=== PATIENT | male | born 1965 | race Caucasian/White ===

== ENCOUNTER 2016-11-25 18:40 | Emergency (ER) | payer SELFPAY ==
[~2016-11-25] VITALS: Ht 193 cm; Wt 70.5 kg
[~2016-11-25 18:40] MED LIST: IBUP400T20 PO; INHALER; LORT5TAB PO
[2016-11-25] MEDS ORDERED: ALBUAER3 INH (20:24)
[2016-11-25 20:27] VITALS: BP 141/85; PULSE 70; RESP 18; TEMP 98.1; O2SAT 99
[2016-11-25 20:30] VITALS: BP 141/85; PULSE 70; RESP 18; TEMP 98.1; O2SAT 99
[2016-11-25] MEDS ORDERED: TETANUS/DIPHTHERIA TOXOID ADULT 0.5 ML VIAL IM ONE (20:30)
[2016-11-25] MEDS ORDERED: RABIES VACCINE CHICK EMB INJ 2.5 UNITS/ML SYR IM ONE (20:30)
[2016-11-25] MEDS ORDERED: AMOXICILLIN/CLAVULANATE K 875 MG TAB PO ONE (20:30)
[2016-11-25] MEDS ORDERED: RABIES IMMUNE GLOBULIN INJ 1,500 UNITS/10 ML VIAL IM ONE (20:30)
[2016-11-25] MEDS ORDERED: IBUP-232 PO (20:41)
[2016-11-25] MEDS ORDERED: AUGM875T3 PO (20:41)
--- NOTE | 2016-11-25 20:45 | PD ---
HPI Chief Complaint: Bite or Sting Time Seen by Provider: 20:19 Travel History International Travel<30 days: No Contact w/Intl Traveler<30days: No Traveled to known affect area: No History of Present Illness HPI Patient is a 61-year-old male who presents to emergency room for evaluation of cat bite. Patient reports that he was breaking up a fight with his dog and a stray cat this morning at 6 AM. Patient was bit in the left arm multiple times by this stray cat. Patient reports that his tetanus is not up-to-date. Patient has not received the rabies vaccine, unsure if this cat is a rabid cat. Patient with no fevers or chills, no other complaints. PFSH Past Medical History COPD: Yes Diminished Hearing: No Musculoskeletal: Yes (CHRONIC LOW BACK PAIN) Past Surgical History Tonsillectomy: Yes Other Surgery: Yes (RIGHT SMALL LOBECTOMY 10/18/09.) Social History Alcohol Use: Yes (3/DAY) Tobacco Use: No (QUIT 11/24. WAS A 1/2 PPD X30 YEARS.) Substance Use: No Allergies-Medications (Allergen,Severity, Reaction): Coded Allergies: No Known Allergies (Verified , 02/24/10) Reported Meds & Prescriptions Reported Meds & Active Scripts Active Ibuprofen 600 Mg Tab 600 Mg PO Q6H PRN Augmentin (Amoxicillin-Clavulanate) 875-125 Mg Tab 1 Tab PO BID 10 Days Reported Proair Hfa 8.5 GM Inh (Albuterol Sulfate) 90 Mcg/Act Aer 2 Puff INH Q4-6H PRN 108 mcg/actuation Review of Systems General / Constitutional: No: Fever Eyes: No: Visual changes HENT: No: Headaches Cardiovascular: No: Chest Pain or Discomfort Respiratory: No: Shortness of Breath Gastrointestinal: No: Abdominal Pain Genitourinary: No: Dysuria Musculoskeletal: No: Pain Skin: No Rash Neurologic: No: Weakness Psychiatric: No: Depression Endocrine: No: Polydipsia Hematologic/Lymphatic: No: Easy Bruising Physical Exam Narrative GENERAL: NAD SKIN: Focused skin assessment warm/dry. HEAD: Atraumatic. Normocephalic. EYES: Pupils equal and round. No scleral icterus. No injection or drainage. ENT: No nasal bleeding or discharge. Mucous membranes pink and moist. NECK: Trachea midline. No JVD. CARDIOVASCULAR: Regular rate and rhythm. No murmur appreciated. RESPIRATORY: No accessory muscle use. Clear to auscultation. Breath sounds equal bilaterally. GASTROINTESTINAL: Abdomen soft, non-tender, nondistended. Hepatic and splenic margins not palpable. MUSCULOSKELETAL: No obvious deformities. No clubbing. No cyanosis. Left forearm with 4 bite rey - there is no signs of FB with in these areas of bite rey, no signs of drainage or cellulitis, pulses intact, neurovascularly intact , there is 1 bite to his left upper arm - again no signs of FB or cellulitis or drainage NEUROLOGICAL: Awake and alert. No obvious cranial nerve deficits. Motor grossly within normal limits. Normal speech. PSYCHIATRIC: Appropriate mood and affect; insight and judgment normal. Data Data Last Documented VS Vital Signs Date Time Temp Pulse Resp B/P Pulse Ox O2 Delivery O2 Flow Rate FiO2 11/25/16 20:30 98.1 70 18 141/85 99 Room Air Orders Amoxicil-Clavulanate (Augmentin) (11/25/16 20:30) Tetanus/Diphtheria Tox Adult (Tetanus/Di (11/25/16 20:30) Rabies Vaccine Chick Emb Inj (Rabavert I (11/25/16 20:30) Rabies Immune Globulin Inj (Hyperrab S/D (11/25/16 20:30) MDM Medical Decision Making Medical Screen Exam Complete: Yes Emergency Medical Condition: Yes Interpretation(s) Vital Signs Date Time Temp Pulse Resp B/P Pulse Ox O2 Delivery O2 Flow Rate FiO2 11/25/16 20:30 98.1 70 18 141/85 99 Room Air 11/25/16 20:30 70 18 11/25/16 20:27 98.1 70 18 141/85 99 Differential Diagnosis Differential includes cat bite Narrative Course Patient is a 61-year-old male who presents to emergency room for evaluation of cat bite. Patient reports that he was breaking up a fight with his dog and a stray cat this morning at 6 AM. Patient was bit in the left arm multiple times by this stray cat. Patient reports that his tetanus is not up-to-date. Patient has not received the rabies vaccine, unsure if this cat is a rabid cat. Discussed need for tetanus, Augmentin as well as rabies vaccine series. Patient will return to the emergency room on November 28, , for his rabies vaccination series Signs and symptoms of when to return to the ER was reviewed with patient in detail . Diagnosis Primary Impression: Cat bite of forearm Qualified Code: S51.852A - Cat bite of left forearm, initial encounter Patient Instructions: General Instructions Additional Instructions: You have received your tetanus vaccine today. Please take all your antibiotics as prescribed You'll need to return to the emergency room for your rabies vaccine series on: Day 0: Today (you have received this dose while in the ER) Day 3: November 28, 2016 Day 7: December 02, 2016 Day 14: December 09, 2016 Return to ER if symptoms worsen Please follow up with your primary care doctor Med/Other Pt SpecificInfo: Prescription(s) given Scripts Ibuprofen 600 Mg Atu672 Mg PO Q6H PRN (Pain/Inflammation) #40 TAB Ref 0 Prov:Estela Rutherford DO 11/25/16 Amoxicillin-Clavulanate (Augmentin)875-125 Mg Tab1 Tab PO BID 10 Days Ref 0 Prov:Estela Rutherford DO 11/25/16 Disposition: 01 DISCHARGE HOME Condition: Stable Estela Rutherford DO Nov 25, 2016 20:45
[2016-11-25 22:00] VITALS: BP 125/85
== END 2016-11-25 22:01 | disposition home or self-care (01) ==
LOC: PHED 18:40
DX: S51.852A Open bite of left forearm, initial encounter (principal); W55.01XA Bitten by cat, initial encounter; Z23 Encounter for immunization
CPT/HCPCS: 90375; 90471; 90472; 90675; 90714; 96372

== ENCOUNTER 2016-11-28 17:04 | Emergency (ER) | payer SELFPAY ==
[~2016-11-28 17:04] MED LIST changes: +ALBUAER3 INH; +AUGM875T3 PO; +IBUP-232 PO; -IBUP400T20 PO; -INHALER; -LORT5TAB PO
--- NOTE | 2016-11-28 17:58 | PD ---
HPI Chief Complaint: Bite or Sting Time Seen by Provider: 17:54 Travel History International Travel<30 days: No Contact w/Intl Traveler<30days: No Traveled to known affect area: No History of Present Illness HPI 51-year-old male presents emergency department for his second rabies by scene. He was bitten by a stray cat and treated in the emergency department on . He was instructed to return for his second rabies vaccine today. Patient was put on antibiotics at the time reports that pain and swelling has decreased at the site of the bite. He has no medical complaint. [facility] Past Medical History COPD: Yes Diminished Hearing: No Musculoskeletal: Yes (CHRONIC LOW BACK PAIN) Past Surgical History Tonsillectomy: Yes Other Surgery: Yes (RIGHT SMALL LOBECTOMY 10/18/09.) Social History Alcohol Use: Yes (3/DAY) Tobacco Use: No Substance Use: No Allergies-Medications (Allergen,Severity, Reaction): Coded Allergies: No Known Allergies (Verified , 11/28/16) Reported Meds & Prescriptions Reported Meds & Active Scripts Active Reported Proair Hfa 8.5 GM Inh (Albuterol Sulfate) 90 Mcg/Act Aer 2 Puff INH Q4-6H PRN 108 mcg/actuation Review of Systems Except as stated in HPI: all other systems reviewed are Neg Physical Exam Narrative GENERAL: Well-nourished, well-developed patient. SKIN: Focused skin assessment warm/dry. 4 wounds to the left forearm all well healing without evidence of infection. HEAD: Normocephalic. EYES: No scleral icterus. No injection or drainage. NECK: Supple, trachea midline. No JVD or lymphadenopathy. CARDIOVASCULAR: Regular rate and rhythm without murmurs, gallops, or rubs. RESPIRATORY: Breath sounds equal bilaterally. No accessory muscle use. Data Data Orders Rabies Vaccine Chick Emb Inj (Rabavert I (11/28/16 18:00) MDM Medical Decision Making Medical Screen Exam Complete: Yes Emergency Medical Condition: Yes Differential Diagnosis Visit for Rabies vaccine, wound recheck, animal bite Narrative Course 51-year-old male here for his second rabies vaccine. Patient was bitten and scratched by a stray cat on 11/25. He has no medical complaint. He reports that the areas of the bite are less painful and swollen than they were previous the. Diagnosis Primary Impression: Cat bite of forearm Qualified Code: S51.852D - Cat bite of left forearm, subsequent encounter Referrals: Primary Care Physician Additional Instructions: Continue the antibiotics as prescribed. Return for your third rabies vaccine in 5 days. Disposition: 01 DISCHARGE HOME Condition: Stable Monae Shukla Nov 28, 2016 17:58
[2016-11-28] MEDS ORDERED: RABIES VACCINE CHICK EMB INJ 2.5 UNITS/ML SYR IM ONE (18:00)
== END 2016-11-28 18:24 | disposition home or self-care (01) ==
LOC: PHEFT 17:04
DX: S51.852D Open bite of left forearm, subsequent encounter (principal); W55.01XD Bitten by cat, subsequent encounter; Z23 Encounter for immunization
CPT/HCPCS: 90471; 90675; G0010

== ENCOUNTER 2016-12-03 05:47 | Emergency (ER) | payer SELFPAY ==
[~2016-12-03] VITALS: Ht 193 cm; Wt 69.8 kg
[~2016-12-03 05:47] MED LIST changes: -AUGM875T3 PO; -IBUP-232 PO
[2016-12-03 05:53] VITALS: BP 144/90; PULSE 55; RESP 16; TEMP 98.3; O2SAT 100
[2016-12-03] MEDS ORDERED: IBUP800T23 PO (06:39)
--- NOTE | 2016-12-03 07:11 | PD ---
HPI Chief Complaint: Abnormal Results Time Seen by Provider: 07:04 Travel History International Travel<30 days: No Contact w/Intl Traveler<30days: No Traveled to known affect area: No History of Present Illness HPI Patient is a 51-year-old male presents emergency department for 14 day postexposure rabies vaccination. Patient has no complaints time. States he was bitten left upper extremities feeling well and has had no rash. No fevers. No neurologic symptoms. was bit by a stray cat Is unavailable for testing. PFSH Past Medical History COPD: Yes Diminished Hearing: No Musculoskeletal: Yes (CHRONIC LOW BACK PAIN) Tetanus Vaccination: < 5 Years Influenza Vaccination: No Past Surgical History Oral Surgery: Yes (wisdom teeth) Tonsillectomy: Yes Other Surgery: Yes (RIGHT SMALL LOBECTOMY 10/18/09.) Social History Alcohol Use: Yes (occassional) Tobacco Use: Yes (1/2 ppd) Substance Use: No Allergies-Medications (Allergen,Severity, Reaction): Coded Allergies: No Known Allergies (Verified , 12/03/16) Reported Meds & Prescriptions Reported Meds & Active Scripts Active Reported Ibuprofen 800 Mg Tab 800 Mg PO Q6HR PRN Review of Systems Except as stated in HPI: all other systems reviewed are Neg Physical Exam Narrative GENERAL: Well-nourished, well-developed patient. In no acute distress SKIN: Focused skin assessment warm/dry. Well-healing puncture wounds to left forearm. HEAD: Normocephalic. EYES: No scleral icterus. No injection or drainage. NECK: Supple, trachea midline. No JVD or lymphadenopathy. CARDIOVASCULAR: Regular rate and rhythm without murmurs, gallops, or rubs. RESPIRATORY: Breath sounds equal bilaterally. No accessory muscle use. GASTROINTESTINAL: Abdomen soft, non-tender, nondistended. MUSCULOSKELETAL: No cyanosis, or edema. BACK: Nontender without obvious deformity. No CVA tenderness. Data Data Last Documented VS Vital Signs Date Time Temp Pulse Resp B/P Pulse Ox O2 Delivery O2 Flow Rate FiO2 12/03/16 05:53 98.3 55 16 144/90 100 Orders Rabies Vaccine Chick Emb Inj (Rabavert I (12/03/16 07:15) MDM Medical Decision Making Medical Screen Exam Complete: Yes Emergency Medical Condition: Yes Differential Diagnosis Postexposure rabies prophylaxis, Cat Bite, puncture wound. Narrative Course Patient roomed in emergency department, appears to be doing well after his cat bite. Rabies vaccination was administered patient was instructed to return for his last vaccination as previously scheduled. Diagnosis Primary Impression: Cat bite of forearm Qualified Code: S51.852D - Cat bite of left forearm, subsequent encounter Additional Instructions: Return to the emergency department on 12/09/2016 for your final rabies shot. Disposition: 01 DISCHARGE HOME Condition: Stable Meet Eric MD Dec 03, 2016 07:11
[2016-12-03] MEDS ORDERED: RABIES VACCINE CHICK EMB INJ 2.5 UNITS/ML SYR IM ONE (07:15)
== END 2016-12-03 07:47 | disposition home or self-care (01) ==
LOC: PHED 05:47
DX: S51.852D Open bite of left forearm, subsequent encounter (principal); W55.01XD Bitten by cat, subsequent encounter; Z23 Encounter for immunization
CPT/HCPCS: 90471; 90675